=== PATIENT | female | born 1980 | race African-American/Black ===

== ENCOUNTER 2017-09-11 17:09 | Emergency (ER) | payer MEDICAID, OTHER ==
[~2017-09-11] VITALS: Ht 162.6 cm; Wt 50.0 kg
[~2017-09-11 17:09] MED LIST: ALBU25PO2; FERR1TAB51; PHEN100C4; [UNRECOGNIZED DRUG - CODE]
[2017-09-11] MEDS ORDERED: SODIUM CHLORIDE 0.9% 1,000 ML IV ONE (17:59)
[2017-09-11 18:40] LABS: BASOPHILS % 0.5 % (0.0-2.0); EOSINOPHILS % 1.3 % (0.0-5.0); HEMATOCRIT. 33.7 % (36.0-48.0); HEMOGLOBIN. 11.1 g/dL (12.0-16.0); LYMPHOCYTES % 59.5 % (20.0-50.0); MEAN CORPUSCULAR HEMOGLOBIN 30.9 pg (28.0-32.0); MEAN CORPUSCULAR VOLUME 93.8 fL (81.0-99.0); MEAN PLATELET VOLUME 9.1 fl (7.4-10.4); MONOCYTES % 5.8 % (2.0-8.0); NEUTROPHILS % 32.9 % (40.0-76.0); PLATELET 103 x1000/uL (130-400); RED BLOOD CELL COUNT 3.59 mill/uL (4.2-5.4); RED CELL DISTRIBUTION WIDTH 15.3 % (11.6-14.6)
[2017-09-11] MEDS ORDERED: AMMONIA INHALATION 1EA INH ONE (18:45)
[2017-09-11 18:47] LABS: CHLORIDE 106 mEq/L (98-107)
[2017-09-11 18:50] LABS: INR 1.3; PARTIAL THROMBOPLASTIN TIME 33.1 sec (23.4-31.0); PROTHROMBIN TIME 13.4 sec (9.4-11.6)
[2017-09-11 18:53] LABS: CARBON DIOXIDE 29 mEq/L (21-32)
[2017-09-11] MEDS ORDERED: POTASSIUM CHLORIDE 20MEQ TABLET SR PO ONE (19:00)
[2017-09-11 19:11] LABS: ETHANOL BLOOD 498 mg/dL
[2017-09-11 19:19] LABS: HCG SCREEN NEGATIVE
[2017-09-11] MEDS ORDERED: MAGNESIUM 2 G PREMIX 50 ML IV ONE (19:30)
[2017-09-11] MEDS ORDERED: MIDAZOLAM HCL 2 MG/2 ML VIAL IV ONE (20:15)
[2017-09-11 20:51] LABS: *AMPHETAMINES SCREEN URINE NEGATIVE (NEGATIVE); *BARBITURATES SCREEN URINE NEGATIVE (NEGATIVE); *BENZODIAZEPINES SCREEN URINE NEGATIVE (NEGATIVE); *COCAINE SCREEN URINE NEGATIVE (NEGATIVE); CANNABINOID URINE SCREEN NEGATIVE (NEGATIVE); METHADONE URINE SCREEN NEGATIVE (NEGATIVE); OPIATES URINE SCREEN NEGATIVE (NEGATIVE); PHENCYCLIDINE URINE SCREEN NEGATIVE (NEGATIVE)
[2017-09-11] MEDS ORDERED: LEVETIRACETAM 500MG/5ML CUP PO SCH (21:00)
[2017-09-12 03:30] VITALS: BP 117/81
== END 2017-09-12 03:50 | disposition home or self-care (01) ==
LOC: ER 18:03
DX: G40.909 Epilepsy, unspecified, not intractable, without status epilepticus (principal); T51.0X1A Toxic effect of ethanol, accidental (unintentional), initial encounter; G92 Toxic encephalopathy; F10.20 Alcohol dependence, uncomplicated; Y90.8 Blood alcohol level of 240 mg/100 ml or more; I10 Essential (primary) hypertension; Y92.89 Other specified places as the place of occurrence of the external cause; Z91.14 Patient's other noncompliance with medication regimen
CPT/HCPCS: 36415; 80048; 80185; 80305; 83735; 84703; 85025; 85610; 85730; 96361; 96365; 96366; 96375; 99285; G0482; J2250; J3475; J7030; Z7610

== ENCOUNTER 2017-09-12 03:58 | Emergency (ER) | payer OTHER ==
[~2017-09-12] VITALS: Ht 170.2 cm; Wt 54.0 kg
[2017-09-12] MEDS ORDERED: MIDAZOLAM HCL 2 MG/2 ML VIAL IM ONE (06:45)
[2017-09-12] MEDS ORDERED: LORAZEPAM 2MG/ML CPJ IV ONE (06:45)
[2017-09-12 06:57] LABS: BASOPHILS % 1.2 % (0.0-2.0); EOSINOPHILS % 1.2 % (0.0-5.0); HEMATOCRIT. 30.8 % (36.0-48.0); HEMOGLOBIN. 10.3 g/dL (12.0-16.0); LYMPHOCYTES % 46.5 % (20.0-50.0); MEAN CORPUSCULAR HEMOGLOBIN 31.4 pg (28.0-32.0); MEAN CORPUSCULAR VOLUME 94.3 fL (81.0-99.0); MEAN PLATELET VOLUME 8.6 fl (7.4-10.4); MONOCYTES % 8.2 % (2.0-8.0); NEUTROPHILS % 42.9 % (40.0-76.0); PLATELET 87 x1000/uL (130-400); RED BLOOD CELL COUNT 3.27 mill/uL (4.2-5.4); RED CELL DISTRIBUTION WIDTH 15.1 % (11.6-14.6)
[2017-09-12 07:09] LABS: CARBON DIOXIDE 27 mEq/L (21-32); CHLORIDE 109 mEq/L (98-107); ETHANOL BLOOD 251 mg/dL
[2017-09-12] MEDS ORDERED: KETOROLAC 30MG/ML VIAL IV ONE (08:30)
[2017-09-12] MEDS ORDERED: DIVALPROEX SODIUM 250MG DR TABLET PO ONE (09:15)
[2017-09-12] MEDS ORDERED: DIVALPROEX SODIUM 500MG DR TABLET PO ONE (10:00)
[2017-09-12 10:30] VITALS: BP 111/89
== END 2017-09-12 11:00 | disposition home or self-care (01) ==
LOC: ER 03:58
DX: R56.9 Unspecified convulsions (principal); J45.909 Unspecified asthma, uncomplicated; K02.9 Dental caries, unspecified; M79.1 Myalgia; Y90.8 Blood alcohol level of 240 mg/100 ml or more
CPT/HCPCS: 36415; 80053; 80165; 80185; 82962; 85025; 96374; 99284; G0482; J1885; J2250; Z7610

== ENCOUNTER 2017-11-27 15:43 | Emergency (ER) | payer MEDICAID, OTHER ==
[~2017-11-27] VITALS: Ht 157.5 cm; Wt 60.0 kg
[2017-11-27] MEDS ORDERED: ACETAMINOPHEN 500MG TABLET PO ONE (19:00)
[2017-11-27] MEDS ORDERED: IBUPROFEN 600MG TABLET PO ONE (19:00)
[2017-11-27 19:30] VITALS: BP 132/81
== END 2017-11-27 19:34 | disposition home or self-care (01) ==
LOC: ER 16:02
DX: S80.02XA Contusion of left knee, initial encounter (principal); G40.909 Epilepsy, unspecified, not intractable, without status epilepticus; W22.8XXA Striking against or struck by other objects, initial encounter; Y93.89 Activity, other specified; Y92.89 Other specified places as the place of occurrence of the external cause; J45.909 Unspecified asthma, uncomplicated
CPT/HCPCS: 99283

== ENCOUNTER 2018-02-13 01:42 | Emergency (ER) | payer MEDICAID ==
[~2018-02-13] VITALS: Ht 165.1 cm; Wt 50.0 kg
[2018-02-13] MEDS ORDERED: ACETAMINOPHEN WITH CODEINE 300/30MG TABLET PO ONE (03:30)
[2018-02-13 03:53] VITALS: BP 106/74
== END 2018-02-13 05:04 | disposition home or self-care (01) ==
LOC: ER 01:42
DX: M54.5 Low back pain (principal); R25.2 Cramp and spasm; F99 Mental disorder, not otherwise specified; J45.909 Unspecified asthma, uncomplicated; G40.909 Epilepsy, unspecified, not intractable, without status epilepticus; F17.200 Nicotine dependence, unspecified, uncomplicated
CPT/HCPCS: 99283

== ENCOUNTER 2018-03-01 03:56 | Emergency (ER) | payer MEDICAID ==
[~2018-03-01] VITALS: Ht 170.2 cm; Wt 50.0 kg
[2018-03-01] MEDS ORDERED: KETOROLAC 60MG/2ML VIAL IM ONE (05:30)
[2018-03-01 07:40] LABS: BASOPHILS % 1.4 % (0.0-2.0); HEMATOCRIT. 29.3 % (36.0-48.0); HEMOGLOBIN. 9.9 g/dL (12.0-16.0); LYMPHOCYTES % 57.8 % (20.0-50.0); MEAN CORPUSCULAR HEMOGLOBIN 30.8 pg (28.0-32.0); MEAN CORPUSCULAR VOLUME 91.7 fL (81.0-99.0); MEAN PLATELET VOLUME 8.3 fl (7.4-10.4); MONOCYTES % 7.3 % (2.0-8.0); NEUTROPHILS % 31.5 % (40.0-76.0); RED CELL DISTRIBUTION WIDTH 15.7 % (11.6-14.6)
[2018-03-01 07:44] LABS: PLATELET 43 x1000/uL (130-400)
[2018-03-01 07:45] LABS: CHLORIDE 104 mEq/L (98-107)
[2018-03-01 07:46] LABS: INR 1.2; PROTHROMBIN TIME 12.2 sec (9.4-11.6)
[2018-03-01] MEDS ORDERED: ACETAMINOPHEN 500MG TABLET PO ONE (08:00)
[2018-03-01 08:04] LABS: PLATELET ESTIMATE MARKEDLY DECREASED
[2018-03-01] MEDS ORDERED: DIVALPROEX SODIUM 250MG ER TABLET PO ONE (08:45)
[2018-03-01] MEDS ORDERED: DIVALPROEX SODIUM 250MG ER TABLET PO SCH (09:15)
[2018-03-01 09:20] VITALS: BP 101/65
== END 2018-03-01 09:54 | disposition home or self-care (01) ==
LOC: ER 03:56
DX: G40.909 Epilepsy, unspecified, not intractable, without status epilepticus (principal); M54.5 Low back pain; G89.29 Other chronic pain; D69.6 Thrombocytopenia, unspecified; F10.20 Alcohol dependence, uncomplicated; F17.200 Nicotine dependence, unspecified, uncomplicated; J45.909 Unspecified asthma, uncomplicated; Y90.9 Presence of alcohol in blood, level not specified
CPT/HCPCS: 36415; 70450; 72100; 80053; 83690; 85025; 85610; 96372; 99285; J1885

== ENCOUNTER 2018-10-05 19:52 | Emergency (ER) | payer MEDICAID ==
[~2018-10-05] VITALS: Ht 170.2 cm; Wt 55.0 kg
[2018-10-05] MEDS ORDERED: IBUPROFEN 600MG TABLET PO ONE (21:30)
[2018-10-05] MEDS ORDERED: KETOROLAC 60MG/2ML VIAL IM ONE (22:45)
[2018-10-05 23:16] VITALS: BP 138/78
== END 2018-10-05 23:27 | disposition home or self-care (01) ==
LOC: ER 21:05
DX: S42.251A Displaced fracture of greater tuberosity of right humerus, initial encounter for closed fracture (principal); J45.909 Unspecified asthma, uncomplicated; R56.9 Unspecified convulsions; Z79.899 Other long term (current) drug therapy; W18.39XA Other fall on same level, initial encounter; Y93.89 Activity, other specified; Y92.89 Other specified places as the place of occurrence of the external cause; Y99.8 Other external cause status
CPT/HCPCS: 73030; 96372; 99283; J1885; A4565

== ENCOUNTER 2018-10-27 13:42 | Emergency (ER) | payer MEDICAID, OTHER ==
[~2018-10-27] VITALS: Ht 165.1 cm; Wt 50.0 kg
[2018-10-27] MEDS ORDERED: SODIUM CHLORIDE 0.9% 1,000 ML IV ONE (15:12)
[2018-10-27 16:58] LABS: BASOPHILS % 1.2 % (0.0-2.0); EOSINOPHILS % 0.2 % (0.0-5.0); HEMATOCRIT. 32.5 % (36.0-48.0); HEMOGLOBIN. 10.7 g/dL (12.0-16.0); LYMPHOCYTES % 30.5 % (20.0-50.0); MEAN CORPUSCULAR HEMOGLOBIN 31.1 pg (28.0-32.0); MEAN CORPUSCULAR VOLUME 94.7 fL (81.0-99.0); MEAN PLATELET VOLUME 9.2 fl (7.4-10.4); MONOCYTES % 3.9 % (2.0-8.0); NEUTROPHILS % 64.2 % (40.0-76.0); PLATELET 166 x1000/uL (130-400); RED BLOOD CELL COUNT 3.43 mill/uL (4.2-5.4); RED CELL DISTRIBUTION WIDTH 15.3 % (11.6-14.6)
[2018-10-27 17:01] LABS: CHLORIDE 109 mEq/L (98-107)
[2018-10-27 17:06] LABS: HCG SCREEN NEGATIVE
[2018-10-27 17:23] LABS: ETHANOL BLOOD 305 mg/dL
[2018-10-27] MEDS ORDERED: POTASSIUM CHLORIDE 20MEQ TABLET SR PO ONE ×2 (17:30→21:30)
[2018-10-27 22:16] VITALS: BP 104/66
== END 2018-10-27 22:28 | disposition left against medical advice (07) ==
LOC: ER 13:50
DX: F10.229 Alcohol dependence with intoxication, unspecified (principal); E87.6 Hypokalemia; Y90.8 Blood alcohol level of 240 mg/100 ml or more; F17.200 Nicotine dependence, unspecified, uncomplicated
CPT/HCPCS: 36415; 80053; 80185; 84703; 85025; 99283; G0482; J7030

== ENCOUNTER 2019-03-22 15:31 | Emergency (ER) | payer MEDICAID, OTHER ==
[~2019-03-22] VITALS: Ht 162.6 cm; Wt 65.0 kg
[2019-03-22] MEDS ORDERED: KEPP500 PO (15:36)
[2019-03-22 16:05] VITALS: BP 139/79
[2019-03-22] MEDS ORDERED: SODIUM CHLORIDE 0.9% 1,000 ML IV ONE (16:17)
[2019-03-22] MEDS ORDERED: ACETAMINOPHEN 325MG TABLET PO ONE (16:30)
== END 2019-03-22 17:22 | disposition left against medical advice (07) ==
LOC: ER 15:31
DX: R56.9 Unspecified convulsions (principal); M79.672 Pain in left foot; F10.10 Alcohol abuse, uncomplicated; J45.909 Unspecified asthma, uncomplicated; F17.200 Nicotine dependence, unspecified, uncomplicated; Z98.890 Other specified postprocedural states; Z79.899 Other long term (current) drug therapy; W18.39XA Other fall on same level, initial encounter; Y93.89 Activity, other specified; Y92.524 Gas station as the place of occurrence of the external cause; Y99.8 Other external cause status
CPT/HCPCS: 99283; J7030; 99284

== ENCOUNTER 2019-03-22 18:40 | Emergency (ER) | payer MEDICAID, OTHER ==
[~2019-03-22 18:40] MED LIST changes: +KEPP500 PO
[2019-03-22] MEDS ORDERED: SODIUM CHLORIDE 0.9% 1,000 ML IV ONE (21:19)
[2019-03-22] MEDS ORDERED: ACETAMINOPHEN 325MG TABLET PO ONE (21:30)
[2019-03-22 21:43] VITALS: BP 105/72
[2019-03-22 22:43] LABS: *AMPHETAMINES SCREEN URINE NEGATIVE (NEGATIVE); *BARBITURATES SCREEN URINE NEGATIVE (NEGATIVE); *BENZODIAZEPINES SCREEN URINE NEGATIVE (NEGATIVE); *COCAINE SCREEN URINE NEGATIVE (NEGATIVE)
[2019-03-22 22:44] LABS: CANNABINOID URINE SCREEN NEGATIVE (NEGATIVE); METHADONE URINE SCREEN NEGATIVE (NEGATIVE); OPIATES URINE SCREEN NEGATIVE (NEGATIVE); PHENCYCLIDINE URINE SCREEN NEGATIVE (NEGATIVE)
== END 2019-03-22 22:30 | disposition left against medical advice (07) ==
LOC: ER 18:40
DX: R56.9 Unspecified convulsions (principal); R51 Headache; M25.512 Pain in left shoulder; J45.909 Unspecified asthma, uncomplicated; Z79.899 Other long term (current) drug therapy
CPT/HCPCS: 80305; 99283; J7030; 80185; 80320; 84703; G0480

== ENCOUNTER 2019-04-23 19:31 | Emergency (ER) | payer OTHER ==
[~2019-04-23] VITALS: Ht 167.6 cm; Wt 50.0 kg
[2019-04-23] MEDS ORDERED: LEVETIRACETAM 1000MG/100ML 100 ML IV ONE (20:15)
[2019-04-23 20:46] LABS: BASOPHILS % 1.1 % (0.0-2.0); EOSINOPHILS % 0.5 % (0.0-5.0); HEMATOCRIT. 30.8 % (36.0-48.0); HEMOGLOBIN. 10.2 g/dL (12.0-16.0); LYMPHOCYTES % 26.1 % (20.0-50.0); MEAN CORPUSCULAR HEMOGLOBIN 31.9 pg (28.0-32.0); MEAN CORPUSCULAR VOLUME 96.2 fL (81.0-99.0); MONOCYTES % 5.8 % (2.0-8.0); NEUTROPHILS % 66.5 % (40.0-76.0); RED BLOOD CELL COUNT 3.21 mill/uL (4.2-5.4); RED CELL DISTRIBUTION WIDTH 16.6 % (11.6-14.6)
[2019-04-23 20:50] LABS: CHLORIDE 106 mEq/L (98-107)
[2019-04-23 20:54] LABS: ETHANOL BLOOD < 10 mg/dL
[2019-04-23 21:03] LABS: HCG SCREEN NEGATIVE; MEAN PLATELET VOLUME 10.2 fl (7.4-10.4)
[2019-04-23 21:05] LABS: PLATELET 21 x1000/uL (130-400)
[2019-04-23] MEDS ORDERED: OXYCODONE HCL/ACETAMINOPHEN 5/325MG TABLET PO ONE (21:15)
[2019-04-23] MEDS ORDERED: POTASSIUM CHLORIDE 20MEQ TABLET SR PO ONE (21:15)
[2019-04-23 21:25] LABS: CLARITY URINE CLEAR (CLEAR); COLOR URINE YELLOW (YELLOW); KETONES URINE NEGATIVE (NEGATIVE); LEUKOCYTE ESTERASE URINE NEGATIVE (NEGATIVE); NITRITE URINE NEGATIVE (NEGATIVE); OCCULT BLOOD URINE 2+ (NEGATIVE); PH URINE 7.5 (4.5-8.0); PROTEIN URINE 2+ (NEGATIVE); SPECIFIC GRAVITY URINE 1.013 (1.005-1.030)
[2019-04-23 21:49] LABS: *AMPHETAMINES SCREEN URINE NEGATIVE (NEGATIVE); *BARBITURATES SCREEN URINE NEGATIVE (NEGATIVE); *BENZODIAZEPINES SCREEN URINE NEGATIVE (NEGATIVE); *COCAINE SCREEN URINE NEGATIVE (NEGATIVE); METHADONE URINE SCREEN NEGATIVE (NEGATIVE)
[2019-04-23 21:50] LABS: CANNABINOID URINE SCREEN NEGATIVE (NEGATIVE); OPIATES URINE SCREEN NEGATIVE (NEGATIVE); PHENCYCLIDINE URINE SCREEN NEGATIVE (NEGATIVE)
[2019-04-24 00:29] VITALS: BP 142/99
== END 2019-04-24 00:33 | disposition home or self-care (01) ==
LOC: ER 19:31
DX: G40.909 Epilepsy, unspecified, not intractable, without status epilepticus (principal); S00.83XA Contusion of other part of head, initial encounter; S00.12XA Contusion of left eyelid and periocular area, initial encounter; W01.10XA Fall on same level from slipping, tripping and stumbling with subsequent striking against unspecified object, initial encounter; Y93.89 Activity, other specified; Y92.89 Other specified places as the place of occurrence of the external cause
CPT/HCPCS: 36415; 70486; 80053; 80305; 80320; 81003; 81025; 84703; 85025; 96365; 99284; J1953; Z7610; G0480

== ENCOUNTER 2019-05-20 13:02 | Emergency (ER) | payer MEDICAID, OTHER ==
[~2019-05-20] VITALS: Ht 170.2 cm; Wt 65.0 kg
[2019-05-20] MEDS ORDERED: SODIUM CHLORIDE 0.9% 1,000 ML IV ONE (13:21)
[2019-05-20] MEDS ORDERED: ONDANSETRON HCL 4MG/2ML INJ IV STA (13:21)
[2019-05-20] MEDS ORDERED: MORPHINE SULFATE 4 MG/ML CPJ (NOT FOR IM USE) IV STA (13:21)
[2019-05-20 14:05] LABS: BASOPHILS % 2.6 % (0.0-2.0); EOSINOPHILS % 2.5 % (0.0-5.0); HEMATOCRIT. 30.5 % (36.0-48.0); HEMOGLOBIN. 10.3 g/dL (12.0-16.0); LYMPHOCYTES % 52.3 % (20.0-50.0); MEAN CORPUSCULAR VOLUME 97.3 fL (81.0-99.0); MEAN PLATELET VOLUME 9.3 fl (7.4-10.4); MONOCYTES % 6.2 % (2.0-8.0); NEUTROPHILS % 36.4 % (40.0-76.0); PLATELET 158 x1000/uL (130-400); RED BLOOD CELL COUNT 3.13 mill/uL (4.2-5.4); RED CELL DISTRIBUTION WIDTH 15.5 % (11.6-14.6)
[2019-05-20 14:14] LABS: CHLORIDE 115 mEq/L (98-107)
[2019-05-20 14:27] LABS: ETHANOL BLOOD 459 mg/dL
[2019-05-20 17:13] VITALS: BP 97/59
[2019-05-20] MEDS ORDERED: POTASSIUM CHLORIDE 20MEQ TABLET SR PO NR (18:00)
== END 2019-05-21 00:11 | disposition home or self-care (01) ==
LOC: ER 13:02
DX: R56.9 Unspecified convulsions (principal); M54.5 Low back pain; Z79.899 Other long term (current) drug therapy
CPT/HCPCS: 36415; 72070; 72100; 80053; 80320; 85025; 96361; 96374; 96375; 99284; J2270; J2405; J7030; G0480

== ENCOUNTER 2019-05-31 17:44 | Inpatient (IN) | payer MEDICAID ==
[~2019-05-31] VITALS: Ht 165.1 cm; Wt 57.3 kg
[2019-05-31] MEDS ORDERED: SODIUM CHLORIDE 0.9% 1,000 ML IV ONE (18:38)
[2019-05-31 19:44] LABS: CLARITY URINE CLEAR (CLEAR); COLOR URINE DARK YELLOW (YELLOW); KETONES URINE 3+ (NEGATIVE); LEUKOCYTE ESTERASE URINE 1+ (NEGATIVE); NITRITE URINE POSITIVE (NEGATIVE); OCCULT BLOOD URINE 2+ (NEGATIVE); PH URINE 6.5 (4.5-8.0); PROTEIN URINE 3+ (NEGATIVE); SPECIFIC GRAVITY URINE 1.023 (1.005-1.030)
[2019-05-31 19:47] LABS: CHLORIDE 105 mEq/L (98-107)
[2019-05-31 19:51] LABS: ETHANOL BLOOD < 10 mg/dL
[2019-05-31 20:00] LABS: *AMPHETAMINES SCREEN URINE NEGATIVE (NEGATIVE); *BARBITURATES SCREEN URINE NEGATIVE (NEGATIVE); *BENZODIAZEPINES SCREEN URINE NEGATIVE (NEGATIVE)
[2019-05-31] MEDS ORDERED: LEVOFLOXACIN 750MG PREMIX 150 ML IV ONE (20:00)
[2019-05-31 20:01] LABS: *COCAINE SCREEN URINE NEGATIVE (NEGATIVE); CANNABINOID URINE SCREEN NEGATIVE (NEGATIVE); METHADONE URINE SCREEN NEGATIVE (NEGATIVE); OPIATES URINE SCREEN NEGATIVE (NEGATIVE); PHENCYCLIDINE URINE SCREEN NEGATIVE (NEGATIVE)
[2019-05-31 20:05] LABS: BASOPHILS % 0.9 % (0.0-2.0); EOSINOPHILS % 0.2 % (0.0-5.0); HEMATOCRIT. 32.1 % (36.0-48.0); HEMOGLOBIN. 10.9 g/dL (12.0-16.0); LYMPHOCYTES % 23.7 % (20.0-50.0); MEAN CORPUSCULAR HEMOGLOBIN 32.4 pg (28.0-32.0); MEAN CORPUSCULAR VOLUME 95.8 fL (81.0-99.0); MEAN PLATELET VOLUME 10.9 fl (7.4-10.4); MONOCYTES % 6.9 % (2.0-8.0); NEUTROPHILS % 68.3 % (40.0-76.0); RED BLOOD CELL COUNT 3.35 mill/uL (4.2-5.4); RED CELL DISTRIBUTION WIDTH 15.5 % (11.6-14.6)
[2019-05-31 20:12] LABS: PLATELET 25 x1000/uL (130-400)
[2019-05-31 20:14] LABS: BG BASE EXCESS -5.3 mmol/L (-2.0-2.0); BG CARBOXYHEMOGLOBIN 0.3 % (0.5-1.5); BG DEOXYHEMOGLOBIN 2.8 % (0.0-5.0); BG FRACTION INSPIRED OXYGEN 21; BG HCO3 ACT 17.4 mmol/L (22.0-26.0); BG METHEMOGLOBIN 0.3 % (0.0-1.5); BG OXYGEN SATURATION 97.2 % (92.0-98.5); BG OXYHEMOGLOBIN 96.6 % (94.0-97.0); BG PCO2 25.3 mmHg (35.0-45.0); BG PH 7.456 (7.350-7.450); BG PO2 97.9 mmHg (75.0-100.0); BG SAMPLE SITE RIGHT BRACHIAL; BG TOTAL HEMOGLOBIN 10.1 g/dL (12.0-18.0); BG VENT MODE ROOM AIR
[2019-05-31 20:38] LABS: PLATELET ESTIMATE MARKEDLY DECREASED
[2019-05-31] MEDS ORDERED: ONDANSETRON HCL 4MG/2ML INJ IV PRN (20:45)
[2019-05-31 23:55] VITALS: BP 152/98
[2019-06-01] VITALS (12 sets, daily range): BP systolic 115–142; BP diastolic 85–98
[2019-06-01] MEDS ORDERED: CEFTRIAXONE 1,000 MG in DEXTROSE 5% WATER 50 ML IV SCH (02:00)
[2019-06-01] MEDS ORDERED: POTASSIUM CHLORIDE INJ 40 MEQ in DEXT 5% WATER 250 ML IV SCH (02:00)
[2019-06-01] MEDS ORDERED: LACTULOSE 300 ML in WATER FOR IRRIGATION,STERILE 700 ML IR SCH ×2 (02:00→09:00)
[2019-06-01] MEDS: DEXT 5%/0.45% NACL 1000ML 1,000 ML IV SCH ×2 (02:26→21:40)
[2019-06-01] MEDS ORDERED: MAGNESIUM 4 G PREMIX 100 ML IV SCH (04:00)
[2019-06-01] MEDS: LACTULOSE 20G/30ML UDC PO SCH ×4 (05:22→21:56)
[2019-06-01 06:16] LABS: CHLORIDE 109 mEq/L (98-107)
[2019-06-01 06:19] LABS: BASOPHILS % 0.7 % (0.0-2.0); EOSINOPHILS % 0.8 % (0.0-5.0); HEMATOCRIT. 27.2 % (36.0-48.0); HEMOGLOBIN. 9.3 g/dL (12.0-16.0); LYMPHOCYTES % 32.6 % (20.0-50.0); MEAN CORPUSCULAR HEMOGLOBIN 32.6 pg (28.0-32.0); MEAN CORPUSCULAR VOLUME 95.5 fL (81.0-99.0); MEAN PLATELET VOLUME 10.2 fl (7.4-10.4); MONOCYTES % 7.1 % (2.0-8.0); NEUTROPHILS % 58.8 % (40.0-76.0); RED BLOOD CELL COUNT 2.85 mill/uL (4.2-5.4); RED CELL DISTRIBUTION WIDTH 14.9 % (11.6-14.6)
[2019-06-01 07:27] LABS: PLATELET 13 x1000/uL (130-400)
[2019-06-01] MEDS: RIFAXIMIN 550 MG TABLET PO SCH ×2 (09:25→20:35)
[2019-06-01 09:33] LABS: PHOSPHORUS 0.6 mg/dL (2.5-4.9)
[2019-06-01] MEDS ORDERED: POTASSIUM PHOS,M-BASIC-D-BASIC 20 MMOL in DEXT 5% WATER 243.3333 ML IV NR ×3 (12:00→16:00)
[2019-06-01] MEDS ORDERED: MAGNESIUM 2 G PREMIX 50 ML IV NR (12:00)
[2019-06-01 13:02] LABS: HEPATITIS B SURFACE ANTIGEN NEGATIVE
[2019-06-01] MEDS: OMEPRAZOLE 20MG CAPSULE EXTENDED RELEASE PO SCH (13:17)
[2019-06-01 13:32] LABS: HEPATITIS A AB IGM NEGATIVE (NEGATIVE)
[2019-06-01] MEDS: POLYVINYL ALCOHOL OPHTH DROPS 15ML BOTHEYE SCH (17:02)
[2019-06-01] MEDS: CEFTRIAXONE 1 G PREMIX 50 ML IV SCH (21:40)
[2019-06-01 21:50] LABS: HEMATOCRIT 29.5 % (36.0-48.0); HEMOGLOBIN 9.9 g/dL (12.0-16.0); MEAN CORPUSCULAR HEMOGLOBIN 32.3 pg (28.0-32.0); MEAN CORPUSCULAR VOLUME 95.8 fL (81.0-99.0); RED BLOOD CELL COUNT 3.08 mill/uL (4.2-5.4); RED CELL DISTRIBUTION WIDTH 15.4 % (11.6-14.6)
[2019-06-01 21:54] LABS: PLATELET 22 x1000/uL (130-400)
[2019-06-01 21:59] LABS: INR 1.4; PARTIAL THROMBOPLASTIN TIME 32.4 sec (23.4-31.0); PROTHROMBIN TIME 14.6 sec (9.6-11.0)
[2019-06-01 23:39] LABS: FOLIC ACID (FOLATE) SERUM 7.1 ng/mL (>5.38)
[2019-06-02] VITALS (12 sets, daily range): BP systolic 102–139; BP diastolic 54–99
[2019-06-02] MEDS: DEXT 5%/0.45% NACL 1000ML 1,000 ML IV SCH ×2 (02:57→18:15)
[2019-06-02] MEDS: LACTULOSE 20G/30ML UDC PO SCH ×3 (06:01→21:31)
[2019-06-02] MEDS: OMEPRAZOLE 20MG CAPSULE EXTENDED RELEASE PO SCH (06:01)
[2019-06-02 07:10] LABS: CHLORIDE 106 mEq/L (98-107)
[2019-06-02 07:11] LABS: BASOPHILS % 0.6 % (0.0-2.0); EOSINOPHILS % 1.9 % (0.0-5.0); HEMATOCRIT. 27.8 % (36.0-48.0); HEMOGLOBIN. 9.5 g/dL (12.0-16.0); MEAN CORPUSCULAR HEMOGLOBIN 32.6 pg (28.0-32.0); MEAN CORPUSCULAR VOLUME 95.6 fL (81.0-99.0); MEAN PLATELET VOLUME 10.2 fl (7.4-10.4); MONOCYTES % 5.9 % (2.0-8.0); NEUTROPHILS % 59.6 % (40.0-76.0); RED BLOOD CELL COUNT 2.91 mill/uL (4.2-5.4); RED CELL DISTRIBUTION WIDTH 15.1 % (11.6-14.6)
[2019-06-02 07:20] LABS: PHOSPHORUS 1.5 mg/dL (2.5-4.9)
[2019-06-02 07:53] LABS: PLATELET 20 x1000/uL (130-400)
[2019-06-02] MEDS: RIFAXIMIN 550 MG TABLET PO SCH ×2 (08:20→21:31)
[2019-06-02] MEDS: POLYVINYL ALCOHOL OPHTH DROPS 15ML BOTHEYE SCH ×2 (08:20→18:15)
[2019-06-02] MEDS ORDERED: POTASSIUM CHLORIDE 20MEQ TABLET SR PO NR (10:45)
[2019-06-02 10:52] LABS: PLATELET ESTIMATE MARKEDLY DECREASED
[2019-06-02] MEDS ORDERED: MAGNESIUM 2 G PREMIX 50 ML IV NR (11:30)
[2019-06-02] MEDS ORDERED: POTASSIUM PHOS,M-BASIC-D-BASIC 20 MMOL in DEXT 5% WATER 243.3333 ML IV NR (12:30)
[2019-06-02 14:28] LABS: TOTAL IRON BINDING CAPACITY 165 ug/dL (250-450)
[2019-06-02] MEDS: CEFTRIAXONE 1 G PREMIX 50 ML IV SCH (21:31)
[2019-06-03] VITALS (9 sets, daily range): BP systolic 102–133; BP diastolic 61–92
[2019-06-03] MEDS: OMEPRAZOLE 20MG CAPSULE EXTENDED RELEASE PO SCH (06:06)
[2019-06-03] MEDS: LACTULOSE 20G/30ML UDC PO SCH ×2 (06:06→14:00)
[2019-06-03] MEDS: DEXT 5%/0.45% NACL 1000ML 1,000 ML IV SCH (06:07)
[2019-06-03 07:08] LABS: BASOPHILS % 0.6 % (0.0-2.0); CHLORIDE 106 mEq/L (98-107); EOSINOPHILS % 1.9 % (0.0-5.0); HEMATOCRIT. 25.6 % (36.0-48.0); HEMOGLOBIN. 8.6 g/dL (12.0-16.0); LYMPHOCYTES % 33.9 % (20.0-50.0); MEAN CORPUSCULAR HEMOGLOBIN 32.2 pg (28.0-32.0); MEAN CORPUSCULAR VOLUME 96.1 fL (81.0-99.0); MONOCYTES % 8.8 % (2.0-8.0); NEUTROPHILS % 54.8 % (40.0-76.0); RED BLOOD CELL COUNT 2.66 mill/uL (4.2-5.4)
[2019-06-03 07:28] LABS: PLATELET 22 x1000/uL (130-400)
[2019-06-03] MEDS: POLYVINYL ALCOHOL OPHTH DROPS 15ML BOTHEYE SCH ×2 (09:32→17:25)
[2019-06-03] MEDS: RIFAXIMIN 550 MG TABLET PO SCH (09:32)
[2019-06-03] MEDS ORDERED: POTASSIUM CHLORIDE 20MEQ TABLET SR PO NR (10:45)
[2019-06-03 11:55] LABS: PHOSPHORUS 2.3 mg/dL (2.5-4.9)
[2019-06-03] MEDS ORDERED: POTASSIUM-SODIUM PHOSPHATE POWDER PACKET PO SCH (15:30)
[2019-06-03] MEDS ORDERED: MAGNESIUM 2 G PREMIX 50 ML IV SCH (17:00)
== END 2019-06-03 18:15 | disposition home or self-care (01) | DRG 720 ==
LOC: ER 17:44 → 3WST 20:55 → ENRESERV 21:32 → 3WST 06-03 02:30
PROVIDERS: ADMIT Internal Medicine; ATTEND Internal Medicine
DX: A41.9 Sepsis, unspecified organism (principal); K72.00 Acute and subacute hepatic failure without coma; D69.6 Thrombocytopenia, unspecified; E83.39 Other disorders of phosphorus metabolism; E44.1 Mild protein-calorie malnutrition; E83.42 Hypomagnesemia; N39.0 Urinary tract infection, site not specified; E87.6 Hypokalemia; F10.10 Alcohol abuse, uncomplicated; D53.9 Nutritional anemia, unspecified; F17.210 Nicotine dependence, cigarettes, uncomplicated; K70.30 Alcoholic cirrhosis of liver without ascites; G40.909 Epilepsy, unspecified, not intractable, without status epilepticus; K72.90 Hepatic failure, unspecified without coma; Z71.41 Alcohol abuse counseling and surveillance of alcoholic; Z68.21 Body mass index [BMI] 21.0-21.9, adult
CPT/HCPCS: 36415; 36600; 71045; 76700; 80048; 80076; 80305; 80307; 80320; 81003; 82140; 82375; 82607; 82728; 82746; 82805; 83036; 83540; 83550; 83735; 84100; 85027; 86705; 86709; 86803; 87340; 92610; 93970; 96365; 97162; 99291; J0696; J1956; J3475; J3480; J3490; J7030; J7060; G0480

== ENCOUNTER 2019-09-04 18:58 | Emergency (ER) | payer MEDICAID ==
[~2019-09-04] VITALS: Ht 167.6 cm; Wt 50.0 kg
[~2019-09-04 18:58] MED LIST changes: +KEPP500 MT; +LACT10SO7 MT; -[UNRECOGNIZED DRUG - CODE]
[2019-09-04] MEDS ORDERED: LORAZEPAM 2MG/ML CPJ IV ONE (20:00)
[2019-09-04] MEDS ORDERED: LEVETIRACETAM 500MG PREMIX 100 ML IV ONE (20:00)
[2019-09-04 20:51] LABS: BASOPHILS % 0.9 % (0.0-2.0); EOSINOPHILS % 5.1 % (0.0-5.0); HEMATOCRIT. 27.4 % (36.0-48.0); HEMOGLOBIN. 9.1 g/dL (12.0-16.0); MEAN CORPUSCULAR HEMOGLOBIN 31.1 pg (28.0-32.0); MEAN CORPUSCULAR VOLUME 94.1 fL (81.0-99.0); MONOCYTES % 9.5 % (2.0-8.0); NEUTROPHILS % 42.5 % (40.0-76.0); PLATELET 172 x1000/uL (130-400); RED BLOOD CELL COUNT 2.91 mill/uL (4.2-5.4)
[2019-09-04 21:19] LABS: HCG SCREEN NEGATIVE
[2019-09-04 21:28] LABS: CHLORIDE 110 mEq/L (98-107)
[2019-09-04 21:51] LABS: ETHANOL BLOOD < 10 mg/dL
[2019-09-04 21:56] LABS: CREATINE KINASE 78 IU/L (26-192)
[2019-09-04 22:12] LABS: CARBAMAZEPINE < 0.5 ug/mL (4-12); PHENOBARBITAL < 2.1 ug/mL (15.0-40.0)
[2019-09-05 05:28] VITALS: BP 120/68
[2019-09-08] MEDS ORDERED: CLOP75TA4 MT (10:53)
== END 2019-09-05 05:32 | disposition home or self-care (01) ==
LOC: ER 18:58
DX: G40.909 Epilepsy, unspecified, not intractable, without status epilepticus (principal); R03.0 Elevated blood-pressure reading, without diagnosis of hypertension; Z91.14 Patient's other noncompliance with medication regimen; Z86.73 Personal history of transient ischemic attack (TIA), and cerebral infarction without residual deficits
CPT/HCPCS: 36415; 80053; 80156; 80165; 80184; 80185; 80320; 82140; 82550; 83690; 84443; 84703; 85025; 93005; 96365; 96375; 99284; J1953; J2060; Z7610; G0480

== ENCOUNTER 2019-09-05 06:03 | Emergency (ER) | payer MEDICAID ==
[~2019-09-05] VITALS: Ht 170.2 cm; Wt 54.0 kg
[2019-09-05] MEDS ORDERED: LEVETIRACETAM 500MG/5ML CUP PO ONE (07:00)
[2019-09-05] MEDS ORDERED: ACETAMINOPHEN 325MG TABLET PO ONE (07:00)
[2019-09-05 07:30] VITALS: BP 111/73
[2019-09-05] MEDS ORDERED: LEVETIRACETAM 500MG TABLET PO ONE (07:34)
[2019-09-08] MEDS ORDERED: CLOP75TA4 MT (10:53)
== END 2019-09-05 09:21 | disposition left against medical advice (07) ==
LOC: ER 06:03
DX: M79.18 Myalgia, other site (principal); R53.81 Other malaise; Z74.1 Need for assistance with personal care; I69.354 Hemiplegia and hemiparesis following cerebral infarction affecting left non-dominant side; G40.909 Epilepsy, unspecified, not intractable, without status epilepticus
CPT/HCPCS: 99283

== ENCOUNTER 2019-09-05 11:35 | Emergency (ER) | payer MEDICAID ==
[~2019-09-05] VITALS: Ht 165.1 cm; Wt 59.0 kg
[2019-09-05 12:40] VITALS: BP 100/68
[2019-09-08] MEDS ORDERED: CLOP75TA4 MT (10:53)
== END 2019-09-05 12:40 | disposition home or self-care (01) ==
LOC: ER 11:35
DX: G89.29 Other chronic pain (principal); M79.18 Myalgia, other site; I69.354 Hemiplegia and hemiparesis following cerebral infarction affecting left non-dominant side; G40.909 Epilepsy, unspecified, not intractable, without status epilepticus
CPT/HCPCS: 81025; 99283

== ENCOUNTER 2019-09-05 12:59 | Emergency (ER) | payer MEDICAID ==
[2019-09-08] MEDS ORDERED: CLOP75TA4 MT (10:53)
== END 2019-09-05 15:01 | disposition left against medical advice (07) ==
LOC: ER 12:59
DX: Z53.21 Procedure and treatment not carried out due to patient leaving prior to being seen by health care provider (principal)

== ENCOUNTER 2019-10-04 04:29 | Emergency (ER) | payer MEDICAID, OTHER ==
[~2019-10-04] VITALS: Ht 160 cm; Wt 50.0 kg
[~2019-10-04 04:29] MED LIST changes: +CLOP75TA4 MT
[2019-10-04] MEDS ORDERED: DIPHENHYDRAMINE 50MG/ML VIAL IV ONE (05:30)
[2019-10-04 05:40] LABS: EOSINOPHILS % 3.8 % (0.0-5.0); HEMATOCRIT. 26.1 % (36.0-48.0); HEMOGLOBIN. 8.7 g/dL (12.0-16.0); LYMPHOCYTES % 33.8 % (20.0-50.0); MEAN CORPUSCULAR HEMOGLOBIN 28.9 pg (28.0-32.0); MEAN CORPUSCULAR VOLUME 87.1 fL (81.0-99.0); MEAN PLATELET VOLUME 8.2 fl (7.4-10.4); MONOCYTES % 13.2 % (2.0-8.0); NEUTROPHILS % 48.2 % (40.0-76.0); PLATELET 214 x1000/uL (130-400); RED CELL DISTRIBUTION WIDTH 15.1 % (11.6-14.6)
[2019-10-04] MEDS ORDERED: DIPHENHYDRAMINE 50MG/ML VIAL IM ONE (05:45)
[2019-10-04 05:48] LABS: INR 1.4; PROTHROMBIN TIME 13.8 sec (9.6-11.0)
[2019-10-04 05:49] LABS: CHLORIDE 102 mEq/L (98-107)
[2019-10-04 05:56] LABS: CLARITY URINE TURBID (CLEAR); COLOR URINE DARK YELLOW (YELLOW); KETONES URINE NEGATIVE (NEGATIVE); LEUKOCYTE ESTERASE URINE 3+ (NEGATIVE); NITRITE URINE POSITIVE (NEGATIVE); OCCULT BLOOD URINE 1+ (NEGATIVE); PH URINE 6.5 (4.5-8.0); PROTEIN URINE 1+ (NEGATIVE); SPECIFIC GRAVITY URINE 1.015 (1.005-1.030)
[2019-10-04] MEDS ORDERED: KCL 20MEQ/100ML PREMIX 100 ML IV ONE (06:30)
[2019-10-04] MEDS ORDERED: CEFTRIAXONE 1 G PREMIX 50 ML IV ONE (06:30)
[2019-10-04] MEDS ORDERED: POTASSIUM CHLORIDE 20MEQ TABLET SR PO ONE (06:30)
[2019-10-04] MEDS ORDERED: SODIUM CHLORIDE 0.9% 1,000 ML IV ONE (06:30)
[2019-10-04] MEDS ORDERED: POTASSIUM CHLORIDE 20MEQ TABLET SR PO SCH (07:00)
[2019-10-04] MEDS ORDERED: IBUPROFEN 600MG TABLET PO ONE (08:15)
[2019-10-04] MEDS ORDERED: PHENYTOIN SODIUM EXTENDED 100MG CAPSULE PO ONE (10:15)
[2019-10-04 10:50] VITALS: BP 100/61
== END 2019-10-04 10:52 | disposition home or self-care (01) ==
LOC: ER 04:29
DX: D64.9 Anemia, unspecified (principal); E87.6 Hypokalemia; N39.0 Urinary tract infection, site not specified; F12.10 Cannabis abuse, uncomplicated; J45.909 Unspecified asthma, uncomplicated; Z86.73 Personal history of transient ischemic attack (TIA), and cerebral infarction without residual deficits; Z79.899 Other long term (current) drug therapy
CPT/HCPCS: 36415; 80053; 80185; 81003; 85025; 85610; 87077; 87086; 87186; 96365; 96372; 99283; J0696; J1200; J3480; J7030; Z7610

== ENCOUNTER 2020-07-01 00:06 | Emergency (ER) | payer MEDICAID, OTHER ==
[~2020-07-01] VITALS: Ht 167.6 cm; Wt 68.0 kg
[2020-07-01] MEDS ORDERED: SODIUM CHLORIDE 0.9% 1,000 ML IV ONE (00:58)
[2020-07-01] MEDS ORDERED: ONDANSETRON HCL 4MG/2ML INJ IV STA (00:58)
[2020-07-01] MEDS ORDERED: MORPHINE SULFATE 4 MG/ML CPJ (NOT FOR IM USE) IV STA (00:58)
[2020-07-01 01:29] LABS: CHLORIDE 112 mEq/L (98-107)
[2020-07-01 01:31] LABS: BASOPHILS % 0.7 % (0.0-2.0); EOSINOPHILS % 1.5 % (0.0-5.0); HCG SCREEN NEGATIVE; HEMATOCRIT. 30.1 % (36.0-48.0); HEMOGLOBIN. 10.1 g/dL (12.0-16.0); LYMPHOCYTES % 62.9 % (20.0-50.0); MEAN CORPUSCULAR HEMOGLOBIN 31.8 pg (28.0-32.0); MEAN CORPUSCULAR VOLUME 94.8 fL (81.0-99.0); MEAN PLATELET VOLUME 8.3 fl (7.4-10.4); MONOCYTES % 6.3 % (2.0-8.0); NEUTROPHILS % 28.6 % (40.0-76.0); PLATELET 148 x1000/uL (130-400); RED BLOOD CELL COUNT 3.18 mill/uL (4.2-5.4); RED CELL DISTRIBUTION WIDTH 19.8 % (11.6-14.6)
[2020-07-01 01:33] LABS: ETHANOL BLOOD 199 mg/dL
[2020-07-01 01:34] LABS: INR 1.2; PROTHROMBIN TIME 12.4 sec (9.6-11.0)
[2020-07-01 02:35] LABS: CLARITY URINE CLEAR (CLEAR); COLOR URINE YELLOW (YELLOW); KETONES URINE NEGATIVE (NEGATIVE); LEUKOCYTE ESTERASE URINE NEGATIVE (NEGATIVE); NITRITE URINE NEGATIVE (NEGATIVE); OCCULT BLOOD URINE NEGATIVE (NEGATIVE); PH URINE 7.5 (4.5-8.0); PROTEIN URINE NEGATIVE (NEGATIVE); SPECIFIC GRAVITY URINE 1.008 (1.005-1.030)
[2020-07-01 02:46] LABS: *AMPHETAMINES SCREEN URINE NEGATIVE (NEGATIVE); *BARBITURATES SCREEN URINE NEGATIVE (NEGATIVE); *BENZODIAZEPINES SCREEN URINE NEGATIVE (NEGATIVE); *COCAINE SCREEN URINE NEGATIVE (NEGATIVE); METHADONE URINE SCREEN NEGATIVE (NEGATIVE); PHENCYCLIDINE URINE SCREEN NEGATIVE (NEGATIVE)
[2020-07-01 03:09] LABS: CANNABINOID URINE SCREEN PRESUMTIVE POSITIVE (NEGATIVE); OPIATES URINE SCREEN PRESUMTIVE POSITIVE (NEGATIVE)
[2020-07-01 04:00] VITALS: BP 131/81
== END 2020-07-01 04:45 | disposition home or self-care (01) ==
LOC: ER 00:06
DX: B34.9 Viral infection, unspecified (principal); I69.354 Hemiplegia and hemiparesis following cerebral infarction affecting left non-dominant side; G40.909 Epilepsy, unspecified, not intractable, without status epilepticus; J45.909 Unspecified asthma, uncomplicated; Z79.899 Other long term (current) drug therapy; Z79.51 Long term (current) use of inhaled steroids
CPT/HCPCS: 36415; 71045; 80053; 80305; 80320; 81003; 82140; 83605; 83880; 84484; 84703; 85025; 85610; 86850; 86900; 86901; 93005; 96361; 96374; 96375; 99285; J2270; J2405; J7030; G0480

== ENCOUNTER 2020-11-19 14:58 | Emergency (ER) | payer MEDICAID ==
[~2020-11-19] VITALS: Ht 170.2 cm; Wt 55.0 kg
[~2020-11-19 14:58] MED LIST changes: +CLOP-31 MT; -CLOP75TA4 MT
[2020-11-19 15:00] VITALS: BP 108/71
[2020-11-19] MEDS ORDERED: LIDOCAINE HCL/PF 1% 10 MG/ML 5ML VIAL IJ ONE (15:15)
[2020-11-19] MEDS ORDERED: TETANUS, DIPHTHERIA, PERTUSSIS VAC/PF 0.5ML (>7YR OLD) IM ONE (15:15)
[2020-11-19] MEDS ORDERED: BACITRACIN ZINC OINT UDPKT TOP ONE (15:15)
== END 2020-11-19 16:58 | disposition home or self-care (01) ==
LOC: ER 14:58
DX: S01.81XA Laceration without foreign body of other part of head, initial encounter (principal); S42.292A Other displaced fracture of upper end of left humerus, initial encounter for closed fracture; M85.812 Other specified disorders of bone density and structure, left shoulder; G40.909 Epilepsy, unspecified, not intractable, without status epilepticus; W17.89XA Other fall from one level to another, initial encounter; Y93.01 Activity, walking, marching and hiking; Y92.480 Sidewalk as the place of occurrence of the external cause; Z23 Encounter for immunization
CPT/HCPCS: 12013; 73030; 90471; 90715; 99283; J3490; L3670

== ENCOUNTER 2020-11-25 09:18 | Emergency (ER) | payer MEDICAID ==
[~2020-11-25] VITALS: Ht 170.2 cm; Wt 54.0 kg
[2020-11-25 10:46] VITALS: BP 125/88
== END 2020-11-25 10:45 | disposition home or self-care (01) ==
LOC: ER 09:31
DX: Z48.02 Encounter for removal of sutures (principal)
CPT/HCPCS: 99281

== ENCOUNTER 2021-03-10 01:18 | Emergency (ER) | payer MEDICAID, OTHER ==
[~2021-03-10] VITALS: Ht 167.6 cm; Wt 50.0 kg
[2021-03-10 05:00] VITALS: BP 102/69
[2021-03-10] MEDS ORDERED: ACETAMINOPHEN 325MG TABLET PO ONE (05:30)
[2021-03-10] MEDS ORDERED: DIVALPROEX SODIUM 250MG ER TABLET PO ONE (05:30)
== END 2021-03-10 06:05 | disposition home or self-care (01) ==
LOC: ER 01:18
DX: M79.671 Pain in right foot (principal); J45.909 Unspecified asthma, uncomplicated; D64.9 Anemia, unspecified; Z79.899 Other long term (current) drug therapy; Z86.73 Personal history of transient ischemic attack (TIA), and cerebral infarction without residual deficits
CPT/HCPCS: 73610; 73630; 99284; Z7610

== ENCOUNTER 2021-03-12 12:46 | Emergency (ER) | payer MEDICAID ==
[~2021-03-12] VITALS: Ht 170.2 cm; Wt 58.0 kg
[2021-03-12 14:30] LABS: EOSINOPHILS % 0.2 % (0.0-5.0); HEMATOCRIT. 33.6 % (36.0-48.0); HEMOGLOBIN. 11.2 g/dL (12.0-16.0); LYMPHOCYTES % 26.3 % (20.0-50.0); MEAN CORPUSCULAR HEMOGLOBIN 32.2 pg (28.0-32.0); MEAN CORPUSCULAR VOLUME 96.7 fL (81.0-99.0); MEAN PLATELET VOLUME 9.9 fl (7.4-10.4); MONOCYTES % 7.1 % (2.0-8.0); NEUTROPHILS % 65.4 % (40.0-76.0); PLATELET 176 x1000/uL (130-400); RED BLOOD CELL COUNT 3.47 mill/uL (4.2-5.4)
[2021-03-12 14:35] LABS: CHLORIDE 105 mEq/L (98-107)
[2021-03-12 14:42] LABS: ETHANOL BLOOD < 10 mg/dL
[2021-03-12 14:46] LABS: CLARITY URINE CLEAR (CLEAR); COLOR URINE YELLOW (YELLOW); KETONES URINE NEGATIVE (NEGATIVE); LEUKOCYTE ESTERASE URINE NEGATIVE (NEGATIVE); NITRITE URINE NEGATIVE (NEGATIVE); OCCULT BLOOD URINE TRACE (NEGATIVE); PH URINE 7.5 (4.5-8.0); PROTEIN URINE 2+ (NEGATIVE); SPECIFIC GRAVITY URINE 1.014 (1.005-1.030)
[2021-03-12 15:02] LABS: METHADONE URINE SCREEN NEGATIVE (NEGATIVE); OPIATES URINE SCREEN NEGATIVE (NEGATIVE)
[2021-03-12 15:03] LABS: *AMPHETAMINES SCREEN URINE NEGATIVE (NEGATIVE); *BARBITURATES SCREEN URINE NEGATIVE (NEGATIVE); *BENZODIAZEPINES SCREEN URINE NEGATIVE (NEGATIVE); *COCAINE SCREEN URINE NEGATIVE (NEGATIVE); PHENCYCLIDINE URINE SCREEN NEGATIVE (NEGATIVE)
[2021-03-12 15:13] LABS: CANNABINOID URINE SCREEN PRESUMTIVE POSITIVE (NEGATIVE)
[2021-03-12] MEDS ORDERED: PHENYTOIN SODIUM EXTENDED 100MG CAPSULE PO ONE (16:00)
[2021-03-12] MEDS ORDERED: DIVALPROEX SODIUM 250MG ER TABLET PO ONE (16:00)
[2021-03-12 16:47] VITALS: BP 122/75
== END 2021-03-12 16:47 | disposition home or self-care (01) ==
LOC: ER 12:46
DX: G40.909 Epilepsy, unspecified, not intractable, without status epilepticus (principal); J45.909 Unspecified asthma, uncomplicated; Z91.19 Patient's noncompliance with other medical treatment and regimen; Z79.899 Other long term (current) drug therapy; Z86.73 Personal history of transient ischemic attack (TIA), and cerebral infarction without residual deficits
CPT/HCPCS: 36415; 80053; 80165; 80185; 80305; 80320; 81003; 81025; 85025; 93005; 99284; Z7610; G0480

== ENCOUNTER 2021-06-18 11:39 | Emergency (ER) | payer MEDICAID, OTHER ==
[~2021-06-18] VITALS: Ht 167.6 cm; Wt 59.0 kg
[2021-06-18 13:47] LABS: BASOPHILS % 0.3 % (0.0-2.0); EOSINOPHILS % 0.1 % (0.0-5.0); HEMOGLOBIN. 8.3 g/dL (12.0-16.0); LYMPHOCYTES % 22.5 % (20.0-50.0); MEAN CORPUSCULAR HEMOGLOBIN 32.7 pg (28.0-32.0); MEAN CORPUSCULAR VOLUME 98.6 fL (81.0-99.0); MEAN PLATELET VOLUME 9.6 fl (7.4-10.4); MONOCYTES % 5.3 % (2.0-8.0); NEUTROPHILS % 71.8 % (40.0-76.0); PLATELET 122 x1000/uL (130-400); RED BLOOD CELL COUNT 2.53 mill/uL (4.2-5.4); RED CELL DISTRIBUTION WIDTH 16.7 % (11.6-14.6)
[2021-06-18 13:55] LABS: CHLORIDE 110 mEq/L (98-107)
[2021-06-18 13:59] LABS: ETHANOL BLOOD < 10 mg/dL
[2021-06-18 14:00] LABS: HCG SCREEN NEGATIVE
[2021-06-18 14:02] LABS: VALPROIC ACID <3.0 ug/mL ug/mL (50-100)
[2021-06-18 14:04] LABS: CARBAMAZEPINE < 0.5 ug/mL (4-12); PHENOBARBITAL < 2.1 ug/mL (15.0-40.0)
[2021-06-18] MEDS ORDERED: MORPHINE SULFATE 4 MG/ML CPJ (NOT FOR IM USE) IV ONE (14:45)
[2021-06-18] MEDS ORDERED: LEVETIRACETAM 1000MG PREMIX 100 ML IV ONE (16:15)
[2021-06-18] MEDS ORDERED: POTASSIUM CHLORIDE 10MEQ TABLET SR PO SCH (16:15)
[2021-06-18 19:00] VITALS: BP 103/64
== END 2021-06-18 19:22 | disposition home or self-care (01) ==
LOC: ER 11:39
DX: G40.909 Epilepsy, unspecified, not intractable, without status epilepticus (principal); J45.909 Unspecified asthma, uncomplicated; Z79.899 Other long term (current) drug therapy; Z86.73 Personal history of transient ischemic attack (TIA), and cerebral infarction without residual deficits
CPT/HCPCS: 36415; 70450; 80053; 80156; 80165; 80184; 80185; 80320; 84703; 85025; 96365; 96375; 99285; J1953; J2270; G0480

== ENCOUNTER 2021-08-08 19:58 | Emergency (ER) | payer MEDICAID, OTHER ==
[~2021-08-08] VITALS: Ht 167.6 cm; Wt 55.0 kg
[2021-08-08 21:44] LABS: BASOPHILS % 0.7 % (0.0-2.0); EOSINOPHILS % 0.7 % (0.0-5.0); HEMATOCRIT. 31.9 % (36.0-48.0); HEMOGLOBIN. 10.5 g/dL (12.0-16.0); LYMPHOCYTES % 57.4 % (20.0-50.0); MEAN CORPUSCULAR HEMOGLOBIN 32.6 pg (28.0-32.0); MEAN CORPUSCULAR VOLUME 98.7 fL (81.0-99.0); MONOCYTES % 3.5 % (2.0-8.0); NEUTROPHILS % 37.7 % (40.0-76.0); PLATELET 87 x1000/uL (130-400); RED BLOOD CELL COUNT 3.23 mill/uL (4.2-5.4); RED CELL DISTRIBUTION WIDTH 16.4 % (11.6-14.6)
[2021-08-08 21:49] LABS: CHLORIDE 112 mEq/L (98-107)
[2021-08-08 22:05] LABS: ETHANOL BLOOD 374 mg/dL
[2021-08-08] MEDS ORDERED: KETOROLAC 30MG/ML VIAL IV STA (22:19)
[2021-08-08] MEDS ORDERED: ACETAMINOPHEN 325MG TABLET PO ONE (22:30)
[2021-08-08] MEDS ORDERED: LEVETIRACETAM 1000MG PREMIX 100 ML IV ONE (22:30)
[2021-08-08] MEDS ORDERED: LEVETIRACETAM 1,000 MG in SODIUM CHLORIDE 0.9% 100 ML IV NR (22:55)
[2021-08-08 23:44] LABS: CLARITY URINE CLEAR (CLEAR); COLOR URINE YELLOW (YELLOW); KETONES URINE NEGATIVE (NEGATIVE); LEUKOCYTE ESTERASE URINE TRACE (NEGATIVE); NITRITE URINE NEGATIVE (NEGATIVE); OCCULT BLOOD URINE NEGATIVE (NEGATIVE); PH URINE 6.5 (4.5-8.0); PROTEIN URINE TRACE (NEGATIVE); SPECIFIC GRAVITY URINE 1.011 (1.005-1.030)
[2021-08-08 23:58] LABS: *AMPHETAMINES SCREEN URINE NEGATIVE (NEGATIVE); *BARBITURATES SCREEN URINE NEGATIVE (NEGATIVE); *BENZODIAZEPINES SCREEN URINE NEGATIVE (NEGATIVE); *COCAINE SCREEN URINE NEGATIVE (NEGATIVE); METHADONE URINE SCREEN NEGATIVE (NEGATIVE); OPIATES URINE SCREEN NEGATIVE (NEGATIVE); PHENCYCLIDINE URINE SCREEN NEGATIVE (NEGATIVE)
[2021-08-09 00:08] LABS: CANNABINOID URINE SCREEN PRESUMTIVE POSITIVE (NEGATIVE)
[2021-08-09] MEDS ORDERED: KEPP500 MT (01:14)
[2021-08-09 04:26] VITALS: BP 121/83
== END 2021-08-09 04:27 | disposition home or self-care (01) ==
LOC: ER 19:58
DX: G40.909 Epilepsy, unspecified, not intractable, without status epilepticus (principal); F10.129 Alcohol abuse with intoxication, unspecified; Y90.8 Blood alcohol level of 240 mg/100 ml or more; D64.9 Anemia, unspecified; F12.90 Cannabis use, unspecified, uncomplicated; Z91.14 Patient's other noncompliance with medication regimen; Z86.73 Personal history of transient ischemic attack (TIA), and cerebral infarction without residual deficits
CPT/HCPCS: 36415; 80053; 80305; 80320; 81003; 85025; 93005; 96365; 99284; J1953; J7050; G0480

== ENCOUNTER 2021-08-15 18:46 | Emergency (ER) | payer OTHER ==
[~2021-08-15] VITALS: Ht 167.6 cm; Wt 59.0 kg
[2021-08-15] MEDS ORDERED: LEVETIRACETAM 1000MG PREMIX 100 ML IV ONE (20:00)
[2021-08-15] MEDS ORDERED: LEVETIRACETAM 1,000 MG in SODIUM CHLORIDE 0.9% 100 ML IV NR (20:30)
[2021-08-15 20:36] LABS: BASOPHILS % 0.9 % (0.0-2.0); EOSINOPHILS % 0.1 % (0.0-5.0); HEMATOCRIT. 31.7 % (36.0-48.0); HEMOGLOBIN. 10.4 g/dL (12.0-16.0); LYMPHOCYTES % 39.5 % (20.0-50.0); MEAN CORPUSCULAR HEMOGLOBIN 32.5 pg (28.0-32.0); MEAN CORPUSCULAR VOLUME 98.9 fL (81.0-99.0); MEAN PLATELET VOLUME 11.2 fl (7.4-10.4); MONOCYTES % 6.4 % (2.0-8.0); NEUTROPHILS % 53.1 % (40.0-76.0); PLATELET 89 x1000/uL (130-400); RED BLOOD CELL COUNT 3.21 mill/uL (4.2-5.4); RED CELL DISTRIBUTION WIDTH 15.4 % (11.6-14.6)
[2021-08-15 21:17] LABS: HCG SCREEN NEGATIVE
[2021-08-15 21:38] LABS: CLARITY URINE CLEAR (CLEAR); COLOR URINE DARK YELLOW (YELLOW); KETONES URINE TRACE (NEGATIVE); LEUKOCYTE ESTERASE URINE TRACE (NEGATIVE); NITRITE URINE NEGATIVE (NEGATIVE); OCCULT BLOOD URINE NEGATIVE (NEGATIVE); PROTEIN URINE 2+ (NEGATIVE); SPECIFIC GRAVITY URINE 1.021 (1.005-1.030)
[2021-08-15 21:54] LABS: *AMPHETAMINES SCREEN URINE NEGATIVE (NEGATIVE); *BARBITURATES SCREEN URINE NEGATIVE (NEGATIVE); *BENZODIAZEPINES SCREEN URINE NEGATIVE (NEGATIVE); *COCAINE SCREEN URINE NEGATIVE (NEGATIVE)
[2021-08-15 21:56] LABS: METHADONE URINE SCREEN NEGATIVE (NEGATIVE); OPIATES URINE SCREEN NEGATIVE (NEGATIVE); PHENCYCLIDINE URINE SCREEN NEGATIVE (NEGATIVE)
[2021-08-15 22:20] LABS: CANNABINOID URINE SCREEN PRESUMTIVE POSITIVE (NEGATIVE)
[2021-08-16 00:11] LABS: CHLORIDE 110 mEq/L (98-107)
[2021-08-16] MEDS ORDERED: KEPP500 MT (00:12)
[2021-08-16 00:15] LABS: ETHANOL BLOOD < 10 mg/dL
[2021-08-16 00:20] LABS: CREATINE KINASE 68 IU/L (26-192)
[2021-08-16] MEDS ORDERED: ACETAMINOPHEN 325MG TABLET PO ONE (01:15)
[2021-08-16 01:54] VITALS: BP 96/64
== END 2021-08-16 02:15 | disposition home or self-care (01) ==
LOC: ER 19:31
DX: G40.909 Epilepsy, unspecified, not intractable, without status epilepticus (principal); Z91.14 Patient's other noncompliance with medication regimen; R00.0 Tachycardia, unspecified; Z86.73 Personal history of transient ischemic attack (TIA), and cerebral infarction without residual deficits
CPT/HCPCS: 36415; 80053; 80305; 80320; 81003; 82550; 84703; 85025; 93005; 96365; 99285; J1953; J7050; G0480

== ENCOUNTER 2021-09-08 13:42 | Inpatient (IN) | payer OTHER ==
[~2021-09-08] VITALS: Ht 170.2 cm; Wt 59.6 kg
[2021-09-08] MEDS ORDERED: LORAZEPAM 2MG/ML CPJ ONE (13:59)
[2021-09-08] MEDS ORDERED: LEVETIRACETAM 1000MG PREMIX 100 ML IV ONE ×3 (14:00)
[2021-09-08] MEDS ORDERED: LORAZEPAM 2MG/ML CPJ IV ONE (14:00)
[2021-09-08] MEDS ORDERED: SODIUM CHLORIDE 0.9% 1,000 ML IV ONE (14:00)
[2021-09-08 14:18] LABS: BASOPHILS % 0.3 % (0.0-2.0); HEMATOCRIT. 28.3 % (36.0-48.0); HEMOGLOBIN. 9.3 g/dL (12.0-16.0); MEAN CORPUSCULAR VOLUME 94.9 fL (81.0-99.0); MONOCYTES % 5.9 % (2.0-8.0); NEUTROPHILS % 83.8 % (40.0-76.0); PLATELET 66 x1000/uL (130-400); RED BLOOD CELL COUNT 2.98 mill/uL (4.2-5.4); RED CELL DISTRIBUTION WIDTH 14.9 % (11.6-14.6)
[2021-09-08 14:28] LABS: CHLORIDE 105 mEq/L (98-107)
[2021-09-08 14:30] LABS: HCG SCREEN NEGATIVE
[2021-09-08 14:32] LABS: ETHANOL BLOOD < 10 mg/dL
[2021-09-08 14:36] LABS: CREATINE KINASE 154 IU/L (26-192)
[2021-09-08 14:39] LABS: CARBAMAZEPINE < 0.5 ug/mL (4-12); PHENOBARBITAL < 2.1 ug/mL (15.0-40.0); VALPROIC ACID < 3.0 ug/mL (50-100)
[2021-09-08 21:18] VITALS: BP 113/71
[2021-09-08 21:20] VITALS: BP 113/71
[2021-09-08] MEDS ORDERED: ONDANSETRON HCL 4MG/2ML INJ IV PRN (22:45)
[2021-09-08] MEDS: ACETAMINOPHEN 325MG TABLET PO PRN (23:11)
[2021-09-09] VITALS: BP 109/83
[2021-09-09] MEDS: LORAZEPAM 2MG/ML CPJ IV PRN (00:45)
[2021-09-09 04:00] VITALS: BP 103/73
[2021-09-09] MEDS ORDERED: POTASSIUM CHLORIDE 20MEQ TABLET SR PO NR (07:00)
[2021-09-09] MEDS ORDERED: POTASSIUM CHLORIDE 20MEQ TABLET SR PO ONE (07:30)
[2021-09-09 08:00] VITALS: BP 100/72
[2021-09-09] MEDS: LEVETIRACETAM 500MG TABLET PO SCH ×2 (08:52→20:47)
[2021-09-09] MEDS: ASPIRIN 81MG TABLET PO SCH (08:52)
[2021-09-09] MEDS ORDERED: ENOXAPARIN 40MG/0.4ML SYR SUBCUT SCH (09:00)
[2021-09-09 09:39] LABS: BASOPHILS % 0.5 % (0.0-2.0); EOSINOPHILS % 0.3 % (0.0-5.0); HEMATOCRIT. 29.4 % (36.0-48.0); HEMOGLOBIN. 9.8 g/dL (12.0-16.0); LYMPHOCYTES % 25.4 % (20.0-50.0); MEAN CORPUSCULAR HEMOGLOBIN 31.1 pg (28.0-32.0); MEAN CORPUSCULAR VOLUME 93.2 fL (81.0-99.0); NEUTROPHILS % 67.8 % (40.0-76.0); PLATELET 63 x1000/uL (130-400); RED BLOOD CELL COUNT 3.16 mill/uL (4.2-5.4); RED CELL DISTRIBUTION WIDTH 14.8 % (11.6-14.6)
[2021-09-09 09:55] LABS: CHLORIDE 105 mEq/L (98-107)
[2021-09-09] MEDS ORDERED: POTASSIUM CHLORIDE 20MEQ/PACKET PO NR (11:00)
[2021-09-09 16:00] VITALS: BP 106/58
[2021-09-09 20:00] VITALS: BP 139/80
[2021-09-09 20:41] LABS: CLARITY URINE CLOUDY (CLEAR); COLOR URINE DARK YELLOW (YELLOW); KETONES URINE NEGATIVE (NEGATIVE); LEUKOCYTE ESTERASE URINE 1+ (NEGATIVE); NITRITE URINE POSITIVE (NEGATIVE); OCCULT BLOOD URINE NEGATIVE (NEGATIVE); PH URINE 7.5 (4.5-8.0); PROTEIN URINE TRACE (NEGATIVE); SPECIFIC GRAVITY URINE 1.017 (1.005-1.030); UROBILINOGEN URINE >8.0 E.U./dL (0.2-1.0)
[2021-09-09] MEDS: ACETAMINOPHEN 325MG TABLET PO PRN (20:47)
[2021-09-09 20:53] LABS: *AMPHETAMINES SCREEN URINE NEGATIVE (NEGATIVE); *BARBITURATES SCREEN URINE NEGATIVE (NEGATIVE)
[2021-09-09 20:54] LABS: *BENZODIAZEPINES SCREEN URINE PRESUMTIVE POSITIVE (NEGATIVE); *COCAINE SCREEN URINE NEGATIVE (NEGATIVE); CANNABINOID URINE SCREEN PRESUMTIVE POSITIVE (NEGATIVE); METHADONE URINE SCREEN NEGATIVE (NEGATIVE); OPIATES URINE SCREEN NEGATIVE (NEGATIVE); PHENCYCLIDINE URINE SCREEN NEGATIVE (NEGATIVE)
[2021-09-10] VITALS: BP 110/72
[2021-09-10] MEDS: ACETAMINOPHEN 325MG TABLET PO PRN ×2 (03:52→17:59)
[2021-09-10 04:03] VITALS: BP 137/90
[2021-09-10] MEDS: LORAZEPAM 2MG/ML CPJ IV PRN ×3 (04:32→22:53)
[2021-09-10 08:00] VITALS: BP 97/63
[2021-09-10 09:02] LABS: CHLORIDE 109 mEq/L (98-107)
[2021-09-10] MEDS: ASPIRIN 81MG TABLET PO SCH (09:53)
[2021-09-10] MEDS: LEVETIRACETAM 500MG TABLET PO SCH ×2 (09:53→21:39)
[2021-09-10] MEDS ORDERED: POTASSIUM CHLORIDE 20MEQ TABLET SR PO NR (10:30)
[2021-09-10] MEDS ORDERED: MAGNESIUM 4 G PREMIX 100 ML IV NR (11:00)
[2021-09-10 12:00] VITALS: BP 110/76
[2021-09-10 16:00] VITALS: BP 122/63
[2021-09-10] MEDS: CEFTRIAXONE 1,000 MG in DEXTROSE 5% WATER 50 ML IV SCH (17:59)
[2021-09-10 20:00] VITALS: BP 120/58
[2021-09-10] MEDS: KETOROLAC 30MG/ML VIAL IV PRN (21:40)
[2021-09-11] VITALS: BP 92/48
[2021-09-11] MEDS: KETOROLAC 30MG/ML VIAL IV PRN ×4 (03:42→22:53)
[2021-09-11 04:00] VITALS: BP 94/62
[2021-09-11 08:00] VITALS: BP 106/61
[2021-09-11] MEDS: LEVETIRACETAM 500MG TABLET PO SCH ×2 (08:30→21:10)
[2021-09-11] MEDS: CEFTRIAXONE 1,000 MG in DEXTROSE 5% WATER 50 ML IV SCH (08:30)
[2021-09-11] MEDS: ACETAMINOPHEN 325MG TABLET PO PRN ×2 (08:43→21:13)
[2021-09-11] MEDS: ASPIRIN 81MG TABLET PO SCH (09:11)
[2021-09-11] MEDS: LORAZEPAM 2MG/ML CPJ IV PRN (09:17)
[2021-09-11 12:00] VITALS: BP 100/52
[2021-09-11 16:00] VITALS: BP 107/71
[2021-09-11 20:00] VITALS: BP 87/58
[2021-09-11] MEDS ORDERED: SODIUM CHLORIDE 0.9% 500 ML IV NR (21:00)
[2021-09-12] VITALS: BP 101/59
[2021-09-12] MEDS: LORAZEPAM 2MG/ML CPJ IV PRN ×3 (03:17→19:13)
[2021-09-12 04:00] VITALS: BP 100/69
[2021-09-12] MEDS: KETOROLAC 30MG/ML VIAL IV PRN ×3 (06:37→22:52)
[2021-09-12 08:00] VITALS: BP 95/51
[2021-09-12] MEDS: ASPIRIN 81MG TABLET PO SCH (10:49)
[2021-09-12] MEDS: CEFTRIAXONE 1,000 MG in DEXTROSE 5% WATER 50 ML IV SCH (10:49)
[2021-09-12] MEDS: LEVETIRACETAM 500MG TABLET PO SCH ×2 (10:50→20:44)
[2021-09-12 12:00] VITALS: BP 92/48
[2021-09-12 16:00] VITALS: BP 105/50
[2021-09-12 20:00] VITALS: BP 88/59
[2021-09-12] MEDS: DIPHENHYDRAMINE 50MG CAPSULE PO PRN (22:52)
[2021-09-12] MEDS: SODIUM CHLORIDE 0.9% 1,000 ML IV SCH (22:53)
[2021-09-13] VITALS: BP 110/64
[2021-09-13] MEDS: LORAZEPAM 2MG/ML CPJ IV PRN (01:44)
[2021-09-13 04:00] VITALS: BP 110/54
[2021-09-13] MEDS: KETOROLAC 30MG/ML VIAL IV PRN ×4 (05:32→21:14)
[2021-09-13 08:00] VITALS: BP 99/63
[2021-09-13] MEDS: CEFTRIAXONE 1,000 MG in DEXTROSE 5% WATER 50 ML IV SCH (09:28)
[2021-09-13] MEDS: ASPIRIN 81MG TABLET PO SCH (09:28)
[2021-09-13] MEDS: LEVETIRACETAM 500MG TABLET PO SCH ×2 (09:29→19:41)
[2021-09-13] MEDS ORDERED: LEVO500T89 MT (10:01)
[2021-09-13] MEDS ORDERED: LEVE1000 MT (10:01)
[2021-09-13 12:00] VITALS: BP 107/71
[2021-09-13] MEDS: SODIUM CHLORIDE 0.9% 1,000 ML IV SCH (12:20)
[2021-09-13 16:00] VITALS: BP 90/50
[2021-09-13 20:00] VITALS: BP 146/78
[2021-09-13] MEDS: DIPHENHYDRAMINE 50MG CAPSULE PO PRN (23:19)
[2021-09-14] VITALS: BP 109/50
[2021-09-14] MEDS: KETOROLAC 30MG/ML VIAL IV PRN ×4 (03:04→19:09)
[2021-09-14] MEDS: SODIUM CHLORIDE 0.9% 1,000 ML IV SCH ×2 (03:04→15:00)
[2021-09-14 04:00] VITALS: BP 122/76
[2021-09-14 08:00] VITALS: BP 98/58
[2021-09-14] MEDS: ASPIRIN 81MG TABLET PO SCH (08:37)
[2021-09-14] MEDS: CEFTRIAXONE 1,000 MG in DEXTROSE 5% WATER 50 ML IV SCH (08:37)
[2021-09-14] MEDS: LEVETIRACETAM 500MG TABLET PO SCH (08:38)
[2021-09-14 12:00] VITALS: BP 95/56
[2021-09-14 16:00] VITALS: BP 104/63
[2021-09-14 19:09] VITALS: BP 104/63
== END 2021-09-14 19:44 | disposition left against medical advice (07) | DRG 53 ==
LOC: ER 13:42 → 8WST 18:23 → EDBEDREQTM 18:24 → EDBEDREQ 18:24 → ENRESERV 19:23
PROVIDERS: ADMIT Internal Medicine; ATTEND Internal Medicine
PROC: 4A10X4Z Monitoring of Central Nervous Electrical Activity, External Approach (ICD-10-PCS; principal; 2021-09-13)
DX: G40.101 Localization-related (focal) (partial) symptomatic epilepsy and epileptic syndromes with simple partial seizures, not intractable, with status epilepticus (principal); E43 Unspecified severe protein-calorie malnutrition; R64 Cachexia; R65.10 Systemic inflammatory response syndrome (SIRS) of non-infectious origin without acute organ dysfunction; K74.60 Unspecified cirrhosis of liver; E87.1 Hypo-osmolality and hyponatremia; D64.9 Anemia, unspecified; E87.6 Hypokalemia; N39.0 Urinary tract infection, site not specified; Z60.2 Problems related to living alone; Z53.29 Procedure and treatment not carried out because of patient's decision for other reasons; M25.572 Pain in left ankle and joints of left foot; F17.210 Nicotine dependence, cigarettes, uncomplicated; J45.909 Unspecified asthma, uncomplicated; Z79.899 Other long term (current) drug therapy; Z79.02 Long term (current) use of antithrombotics/antiplatelets; Z68.20 Body mass index [BMI] 20.0-20.9, adult; I69.30 Unspecified sequelae of cerebral infarction
CPT/HCPCS: 36415; 70551; 73610; 80048; 80053; 80156; 80165; 80184; 80185; 80305; 80320; 81003; 82550; 83735; 84703; 85025; 93880; 95816; 97116; 97162; 97530; 99285; C1893; J0696; J1885; J1953; J2060; J3475; J7030; J7040; J7060; Q0163; G0480